=== PATIENT | female | born 2000 | race Hispanic/Latino ===

== ENCOUNTER 2022-07-07 10:42 | Emergency (ER) | payer OTHER ==
[~2022-07-07] VITALS: Ht 170.2 cm; Wt 88.3 kg
[2022-07-07] MEDS ORDERED: ACETAMINOPHEN 500 MG TAB PO ONE (11:10)
[2022-07-07] MEDS ORDERED: KETOROLAC 30 MG/ML 1ML VIAL IV ONE (12:20)
[2022-07-07] MEDS ORDERED: LIDOCAINE VISCOUS 2% SOLN 15ML UDC SS ONE (12:20)
[2022-07-07] MEDS ORDERED: NS 1,000 ML IV ONE (12:20)
[2022-07-07] MEDS ORDERED: ONDANSETRON 4MG 2ML VIAL IV ONE (12:20)
[2022-07-07 13:08] LABS: BASO % 0.2 % (0.0-1.0); HEMATOCRIT 41.4 % (36.0-47.0); HEMOGLOBIN 13.6 g/dl (12.0-15.5); LYMPH # 1.1 10^3/uL (1.5-5.0); LYMPH % 7.8 % (24.0-44.0); MEAN CORPUSCULAR HEMOGLOBIN 27.9 pg (27.0-33.0); MEAN CORPUSCULAR HGB CONC 32.9 g/dl (32.0-36.5); MEAN CORPUSCULAR VOLUME 84.8 fl (80.0-96.0); MONO # 0.8 10^3/uL (0.0-0.8); MONO % 5.4 % (2.0-8.0); NEUTROPHILS # 12.4 10^3/uL (1.5-8.5); NEUTROPHILS % 86.2 % (36.0-66.0); PLATELET COUNT, AUTOMATED 303 10^3/uL (150-450); RED BLOOD COUNT 4.88 10^6/uL (4.00-5.40); WHITE BLOOD COUNT 14.3 10^3/uL (4.0-10.0)
[2022-07-07] MEDS ORDERED: ISOVUE-370 76% 100ML VIAL As Ordered ONE (13:52)
[2022-07-07 13:53] LABS: ERYTHROCYTE SEDIMENTATION RATE 18 mm/hr (0-20)
[2022-07-07] MEDS ORDERED: dexameTHASONE 4 MG/ML 1ML VIAL (J1100 PER 1MG) PO ONE (14:25)
[2022-07-07] MEDS ORDERED: ONDA4TAB6 PO (15:29)
[2022-07-07] MEDS ORDERED: LIDO2SOL9 PO (15:29)
[2022-07-07] MEDS ORDERED: IBUP80TA PO (15:29)
[2022-07-07 15:52] VITALS: BP 112/56
== END 2022-07-07 15:54 | disposition home or self-care (01) ==
LOC: M ED 10:42
DX: U07.1 COVID-19 (principal); R59.9 Enlarged lymph nodes, unspecified; Z88.0 Allergy status to penicillin
CPT/HCPCS: 70491; 71045; 80047; 84702; 85025; 85652; 86140; 87040; 87486; 87581; 87633; 87798; 87880; 96361; 96374; 96375; 99284; J1100; J1885; J2405; Q9967

== ENCOUNTER 2022-12-12 19:11 | Emergency (ER) | payer OTHER ==
[~2022-12-12] VITALS: Ht 170.2 cm; Wt 84.1 kg
[~2022-12-12 19:11] MED LIST: IBUP80TA PO; LIDO2SOL9 PO; ONDA4TAB6 PO
[2022-12-13 01:56] VITALS: BP 129/71
== END 2022-12-13 06:20 | disposition left against medical advice (07) ==
LOC: M ED 19:11
DX: Z53.21 Procedure and treatment not carried out due to patient leaving prior to being seen by health care provider (principal)

== ENCOUNTER → 2023-02-17 | Outpatient (REF) | payer OTHER ==
[2023-02-17 20:28] LABS: GC DNA AMPLIFICATION NEGATIVE (NEGATIVE)
== END ==
LOC: M LAB REF 18:39
PROVIDERS: ATTEND Physician Assistant
DX: R30.0 Dysuria (principal); Z20.2 Contact with and (suspected) exposure to infections with a predominantly sexual mode of transmission